=== PATIENT | male | born 2005 | race African-American/Black ===

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

== ENCOUNTER 2024-09-01 16:59 | Emergency (ER) | payer BC, SELFPAY ==
--- NOTE | ~2024-09-01 | XR_ITS ---
EXAMINATION: XR chest 1V portable DATE: 09/01/2024 17:54 INDICATION: Chest pain. TECHNIQUE: A single frontal view of the chest was obtained. COMPARISON: Chest 2 views 10/27/10 FINDINGS: There is no pneumonia, pleural effusion, or pneumothorax. The heart size is normal. IMPRESSION: 1. No acute cardiopulmonary disease. Reviewed, dictated and finalized at location A. [facility]
--- OUTSIDE RECORDS SUMMARY | 2024-09-01 17:01 | XMS_ITS | Clinical Summary ---
Author Organization [facility] [employer] Address [address] [place] [address] Care Team Providers Care Buyer Broker Name Role Phone Cornell Eddy MD Primary Care Provider [phone] Tk Ni PA-C Unavailable [phone] Source Comments [facility] [employer],non-owned Affiliates and Associated Physician Practices is amultiple site organization consisting of ambulatory clinics and hospital sitesin [place], [place], [place] and [place]. This disclosure is being madepursuant to the Care Everywhere program and may not contain all information available regarding this patient. Last updated 18.[facility] [employer] Allergies No known active allergies Medications Be aware that medications may not be up to date on this document. Always verify current medications with the patient. 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 No clear source of his pain. Recommended OTC medications if pain becomes persistent and scrotal support. Can follow up in clinic PRN if symptoms worsen or persist. Closed nondisplaced fracture of phalanx of left thumb 03/10/2018 Social History Tobacco Use Types Packs/Day Years Used Date Smoking Tobacco: Never Smokeless Tobacco: Never Alcohol Use Standard Drinks/Week Comments Never 0 (1 standard drink = 0.6 oz pur e alcohol) Sex and Gender Information Value Date Recorded Sex Assigned at Not on file Gender Identity Not on file Sexual Orientation Not on file Last Filed Vital Signs Vital Sign Reading Time Taken Comments Blood Pressure 95/58 02/28/2017 11:54 AM CDT Pulse 74 02/28/2017 11:54 AM CDT Temperature 36.9 C (98.4 F) 02/28/2017 11:54 AM CDT Respiratory Rate 16 02/28/2017 11:54 AM CDT Oxygen Saturation 99% 02/28/2017 11:54 AM CDT Inhaled Oxygen Concentration - - Weight 64.4 kg (142 lb) 01/19/2021 11:10 AM CDT Height 169 cm (5' 6.54 ) 11/06/2020 9:19 AM CDT Body Mass Index - - Plan of Treatment Health Maintenance Due Date Last Done Comments HIV SCREENING 11/06/2019 HPV VACCINE (1 - Male 3-dose series) 11/06/2019 MENINGOCOCCAL (Group B) VACC INE (1 of 2 - Standard) 2020 HEPATITIS C SCREENING 11/01/2022 DTAP/TDAP/TD VACCINES (1 - Tdap) 11/06/2023 HEPATITIS B VACCINE (1 of 3 - 19+ 3-dose series) 11/06/2023 COVID-19 VACCINE (1 - 2023-2 5 season) 2024 INFLUENZA VACCINE (#1) 2024 DEPRESSION SCREENING 07/14/2024 ZOSTER VACCINE (1 of 2) 2054 HIB VACCINE Aged Out No longer eligi ble based on patient's age to complete this topic MENINGOCOCCAL VACCINE Aged Out No delfino erick eligible based on patient's age to complete this topic PNEUMOCOCCAL VACCINE Aged Out No long er eligible based on patient's age to complete this topic Goals Goal Patient Goal Type Associated Problems Recent Progress Patient-Stated? Author Mobility General No Merle Hannah, RN Note: Expected end date: 07/13/2021 The goal is to maintain or improve your mobility at the optimum level for you. Interventions: Care Teams Buyer Broker Relationship Specialty Start Date End Date Cornell Eddy MD [address] [place] [address] PCP - General Pediatrics 02/28/17 Tk Ni, PASandovalC [address] [place] [address] Orthopedic 10/31/20
--- OUTSIDE RECORDS SUMMARY | 2024-09-01 17:01 | XMS_ITS | Referral Summary ---
Author Organization [facility] [employer] Address [address] [place] [address] Care Team Providers Care Watershed Program Manager Name Role Phone Cornell Eddy MD Primary Care Provider [phone] Tk Ni PA-C Unavailable [phone] Source Comments [facility],non-owned Affiliates and Associated Physician Practices is amultiple site organization consisting of ambulatory clinics and hospital sitesin [place], [place], [place] and [place]. This disclosure is being madepursuant to the Care Everywhere program and may not contain all information available regarding this patient. Last updated 18.[facility] [employer] Allergies No known active allergies Medications Be aware that medications may not be up to date on this document. Always verify current medications with the patient. 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 Author Mobility General No Merle Hannah, RN Note: Expected end date: 07/13/2021 The goal is to maintain or improve your mobility at the optimum level for you. Interventions: Care Teams Watershed Program Manager Relationship Specialty Start Date End Date Cornell Eddy MD [address] [address] PCP - General Pediatrics 02/28/17 Tk Ni, MERYLC [address] [place] [address] Orthopedic 10/31/20
--- OUTSIDE RECORDS SUMMARY | 2024-09-01 17:01 | XMS_ITS | Patient Health Summary ---
Author Organization [facility] Address [address] [place] [address] Care Team Providers Care Prime Minister Name Role Phone Cornell Eddy MD Primary Care Provider [phone] Tk Ni PA-C Unavailable [phone] Note from [facility] [place],non-owned Affiliates and Associated Physician Practices is amultiple site organization consisting of ambulatory clinics and hospital sitesin [place], [place], [place] and [place]. This disclosure is being madepursuant to the Care Everywhere program and may not contain all information available regarding this patient. Last updated 18.[facility] Allergies No known active allergies Medications Be aware that medications may not be up to date on this document. Always verify current medications with the patient. 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 Anatomical Region Laterality Modality Wrist / Hand Radiographic Loreta ging 01/19/2021 11:1 0 AM CDT Impressions 01/19/2021 11:27 AM CDT Impression: Flexion deformity of the fifth digit proximal interphalangeal joint with a 3 mm nonacute appearing fracture fragment adjacent to the proximal phalanx head. Mild surrounding soft tissue swelling. Report dictated by Deny Ayon MD (sales and marketing vice president). I, Dr. ABHINAV MURO MD have personally reviewed and interpreted this examination/study. This report was electronically signed by ABHINAV MURO MD on 01/19/2021 11:27 AM . Narrative 01/19/2021 11:27 AM CDT EXAMINATION: XR HAND LEFT 3VW HISTORY: M79.642: Pain of left hand COMPARISON: No prior study is available for comparison. FINDINGS: There is mild deformity of the fifth digit proximal phalanx head with an adjacent 3 mm ossific fragment which is likely a nonacute fracture. There is flexion of the fifth digit proximal interphalangeal joint on all the images. There is mild surrounding soft tissue swelling. These findings are consistent with the sequela of trauma. There is no other fracture or dislocation and the other joints are normal. Procedure Note Abhinav Muro MD - 01/19/2021 EXAMINATION: XR HAND LEFT 3VW HISTORY: M79.642: Pain of left hand COMPARISON: No prior study is available for comparison. FINDINGS: There is mild deformity of the fifth digit proximal phalanx head with an adjacent 3 mm ossific fragment which is likely a nonacute fracture.There is flexion of the fifth digit proximal interphalangeal joint on all the images. There is mild surrounding soft tissue swelling. These findingsare consistent with the sequela of trauma. There is no other fracture or dislocation and the other joints arenormal. Impression: Flexion deformity of the fifth digit proximal interphalangeal joint witha 3 mm nonacute appearing fracture fragment adjacent to the proximalphalanx head. Mild surrounding soft tissue swelling. Report dictated by Deny Ayon MD (sales and marketing vice president). I, Dr. ABHINAV MURO MD have personally reviewed and interpreted this examination/study. This report was electronically signed by ABHINAV MURO MD on01/19/2021 11:27 AM . Logan Strong MD DIAGNOSTIC IMAGING O RDERABLES * US SCROTUM AND CONTENTS (08/16/2020 2:58 PM SAUSAGE COOKER) Anatomical Region Laterality Modality Pelvis Ultrasound 08/16/2020 2:21 PM SAUSAGE COOKER Impressions 08/16/2020 3:08 PM SAUSAGE COOKER Unremarkable testicular ultrasound. Reading Radiologist: Inocente Garcia on 08/16/2020 at 3:08 PM Narrative 08/16/2020 3:08 PM SAUSAGE COOKER INDICATION: Scrotal pain COMPARISON: None available. TECHNIQUE: Gao scale and Color Doppler imaging of the scrotum was performed. FINDINGS: The right testicle measures 3.2 x 1.8 x 2.7 cm (volume of 8.5 cc) and the left testicle measures 3.1 x 2.0 x 2.2 cm (volume of 6.9 cm). No discrete focal intratesticular abnormalities are identified. The epididymis is unremarkable bilaterally. No substantial hydroceles are identified. Doppler evaluation demonstrates grossly positive and symmetric bilateral testicular blood flow. Procedure Note Inocente Garcia DO - 08/16/2020 INDICATION: Scrotal pain COMPARISON: None available. TECHNIQUE: Gao scale and Color Doppler imaging of the scrotum wasperformed. FINDINGS: The right testicle measures 3.2 x 1.8 x 2.7 cm (volume of 8.5 cc) and theleft testicle measures 3.1 x 2.0 x 2.2 cm (volume of 6.9 cm). No discrete focal intratesticular abnormalities are identified. The epididymis is unremarkable bilaterally. No substantial hydroceles are identified. Doppler evaluation demonstrates grossly positive and symmetric bilateral testicular blood flow. IMPRESSION Unremarkable testicular ultrasound. Reading Radiologist: Inocente Garcia on 08/16/2020 at 3:08 PM Elsa Fung PA-C ORDERABLES Care Teams Prime Minister Relationship Specialty Start Date End Date Cornell Eddy MD [address] [place] [phone] PCP - General Pediatrics 02/28/17 Tk Ni PA-C [address] [place] [phone] Orthopedic 10/31/20
[2024-09-01 17:05] VITALS: BP 123/59; PULSE 83; RESP 16; TEMP 36.6; O2SAT 100
[2024-09-01 17:31] LABS: Basophils Percent Auto 0.2 % (0.2-1.2); Eosinophils Absolute Auto 0.1 K/mm3 (0-0.3); Eosinophils Percent Auto 0.6 % (0-4.4); Hematocrit 41.4 % (42.0-52.0); Immature Granulocyte Absolute 0.02 K/mm3 (0.00-0.031); Immature Granulocyte Percent A 0.2 % (0-0.5); Lymphocytes Absolute Auto 2.55 K/mm3 (0.9-3.2); Lymphocytes Percent Auto 28.2 % (18.3-44.2); Mean Corpuscular HGB Conc 33.8 g/dl (32-36); Mean Corpuscular Hemoglobin 31.3 pg (26-34); Mean Corpuscular Volume 92.6 fl (80-100); Mean Platelet Volume 8.7 fl (7.4-10.4); Monocytes Absolute Auto 0.6 K/mm3 (0.1-0.6); Monocytes Percent Auto 6.1 % (2.6-8.5); Neutrophils Absolute Auto 5.9 K/mm3 (1.3-6.7); Neutrophils Percent Auto 64.7 % (45.5-73.1); Platelet Count Result 306 k/mm3 (150-375); Red Blood Count 4.47 M/mm3 (4.6-6.20); Red Cell Distribution Width 12.5 % (11.5-14.5); White Blood Count 9.1 K/mm3 (4.5-10.0)
--- NOTE | 2024-09-01 17:39 | ECG_ITS ---
Test Date: 2024-09-01 18:04:34 Measurements Intervals Foster Rate: 59 P: 44 UT: 176 QRS: 60 QRSD: 81 T: 63 QT: 352 QTc: 350 Interpretive Statements SINUS BRADYCARDIA WITH SINUS ARRHYTHMIA BORDERLINE ECG No previous ECG available for comparison Electronically Signed On 09-01-2024 18:56:33 SHEET METAL WORKER by Danis Carlos D.O.
--- NOTE | 2024-09-01 17:46 | ED.ABDPAIN ---
HPI - Abdominal Pain General Chief Complaint: Abdominal Pain Stated Complaint: I think my spleen is swollen Time Seen by Provider: 09/01/24 17:15 Source: patient Mode of arrival: ambulatory Limitations: no limitations History of Present Illness HPI narrative: This is a 18-year-old male who presents to the ED for chief complaint of abdominal pain for the past 2 days. States it started after waking up yesterday morning. Patient states that the pain is concentrated in the left upper quadrant. States pain does not radiate and has been relatively constant. Denies any alleviating or exacerbating factors. States that he did have preceding illness about a week or so ago. States that he was having fevers and sore throat which has since resolved. States that he has had a bit of a cough as well. Denies shortness of breath, vomiting, diarrhea, flank pain, urinary symptoms. Related Data Allergies Allergy/AdvReac Type Severity Reaction Status Date / Time No Known Allergies Allergy Verified 09/01/24 17:58 Review of Systems Review of Systems: All systems as dictated in HPI PMFSH Past Medical History Medical History No pertinent past medical history Surgical History Surgical History No pertinent past surgical history Family History Family History Mother Family history non-contributory Social History Social History Smoking status: Never smoker Alcohol intake: never Substance use: never Living arrangements: with family Gender identity (if verbalized by the patient): Male Exam Narrative: GENERAL: Well-appearing, well-nourished, and in no acute distress. Eating spicy chips in the bed. HEAD: Normocephalic, atraumatic. EYES: PERRLA and EOMI. ENT: Nares clear, no rhinorrhea or epistaxis. Mucous membranes moist. Oropharynx without tonsillar hypertrophy exudate or other lesions. NECK: Supple. No adenopathy or masses. CHEST: No respiratory distress. Clear to auscultation. No wheezes rales or rhonchi HEART: Regular rate and rhythm. No murmur heard. Normal peripheral pulses. ABDOMEN: Soft, nontender, nondistended, normal active bowel sounds. No organomegaly. Negative flank tenderness bilaterally MSK: Normal range of motion. No edema. SKIN: Warm, dry, no rash. NEURO: Alert and oriented x4. No focal deficits. PSYCH: Normal mood and affect. Course Vital Signs Vital signs: Vital Signs Temperature 97.9 F 09/01/24 17:05 Pulse Rate 83 09/01/24 17:05 Respiratory Rate 16 09/01/24 17:05 Blood Pressure 123/59 L 09/01/24 17:05 Pulse Oximetry 100 09/01/24 17:05 Temperature 97.9 F 09/01/24 17:05 Pulse Rate 83 09/01/24 17:05 Respiratory Rate 16 09/01/24 17:05 Blood Pressure 123/59 L 09/01/24 17:05 Pulse Oximetry 100 09/01/24 17:05 MDM - Abdominal Pain MDM Narrative Medical decision making narrative: This is a 18-year-old male who presents to the ED for chief complaint of abdominal pain. Vitals are normal. Exam is unremarkable overall. Low concern for acute abdomen. Lab work is benign with a normal white count and normal CBC overall. CMP grossly unremarkable. Lipase normal. Chest x-ray normal. EKG shows benign early repolarization. Patient was given GI cocktail, Bentyl, Pepcid for assumed gastritis with some relief. Urinalysis concerning with 2+ leuk esterase, 21-50 whites. STD panel is positive for chlamydia. Patient will be given doxycycline here and Rx for doxy for 1 week. Patient will be discharged in stable condition. Supportive measures discussed and return precautions given. Patient is understanding and agreeable with plan for discharge with PCP follow-up. Differential Diagnosis Differential diagnosis: Likely abdominal pain, acute appendicitis, constipation, diverticulitis, gastroenteritis, pancreatitis and small bowel obstruction Lab Data 09/01/24 17:26 09/01/24 17:26 Labs: Lab Results 09/01/24 09/01/24 Range/Units 17:26 17:37 WBC 9.1 (4.5-10.0) K/mm3 RBC 4.47 L (4.6-6.20) M/mm3 Hgb 14.0 (14.0-18.0) g/dL Hct 41.4 L (42.0-52.0) % MCV 92.6 (80-100) fl MCH 31.3 (26-34) pg MCHC 33.8 (32-36) g/dl RDW 12.5 (11.5-14.5) % Plt Count 306 (150-375) k/mm3 MPV 8.7 (7.4-10.4) fl Immature Gran % (Auto) 0.2 (0-0.5) % Neut % (Auto) 64.7 (45.5-73.1) % Lymph % (Auto) 28.2 (18.3-44.2) % [place] % (Auto) 6.1 (2.6-8.5) % Eos % (Auto) 0.6 (0-4.4) % Baso % (Auto) 0.2 (0.2-1.2) % Lymph # (Auto) 2.55 (0.9-3.2) K/mm3 [place] # (Auto) 0.6 (0.1-0.6) K/mm3 Eos # (Auto) 0.1 (0-0.3) K/mm3 Baso # (Auto) 0.0 (0.0-0.1) K/mm3 Abs Immat Gran (auto) 0.02 (0.00-0.031) K/mm3 Absolute Neuts (auto) 5.9 (1.3-6.7) K/mm3 Absolute Nucleated RBC 0.000 (0.0-0.012) K/mm3 Nucleated RBC % 0.0 (0.0-0.2) % Sodium 140 (134-143) mmol/L Potassium 4.2 (3.4-5.0) mmol/L Chloride 100 (98-107) mmol/L Carbon Dioxide 28 (22-30) mmol/L Anion Gap 12 (4-12) mmol/L BUN 13 (8-21) mg/dL Creatinine 0.98 (0.7-1.3) mg/dL Estim Creat Clear Calc 93 ml/min Estimated GFR > 60 (59 - ) Glucose 83 (65-110) mg/dL Calcium 9.8 (8.9-10.7) mg/dL Total Bilirubin 1.1 (0.2-1.3) mg/dL AST 45 (17-59) U/L ALT 34 (6-50) U/L Alkaline Phosphatase 77 (58-237) U/L Total Protein 8.0 (6.3-8.6) g/dL Albumin 4.7 (3.7-5.6) g/dL Lipase 18 L (23-300) U/L Urine Color Yellow (Yellow) Urine Appearance Clear (Clear) Urine pH 6.5 (5.0-9.0) Ur Specific [place] 1.017 (1.001-1.035) Urine Protein Negative (Negative) mg/dL Urine Glucose (UA) Negative (Negative) mg/dL Urine Ketones Negative (Negative) mg/dL Ur Blood (Man) Negative (Negative) Urine Nitrate Negative (Negative) Urine Bilirubin Negative (Negative) Urine Urobilinogen 1.0 (<2.0) mg/dL Leukocyte Esterase Rfl 2+ H (Negative) RAYRAY/UL Urine RBC 0-2 (0-2) /hpf Urine WBC 21-50 H (0-3) /hpf Ur Squamous Epith Cells None seen (Few) /hpf Urine Bacteria None seen /hpf Urine Casts 0-2 C. trachomatis (PCR) Detected A (NOT DETECTE) Monoscreen Negative (Negative) N. gonorrhoeae (PCR) Not detected (NOT DETECTE) T. vaginalis (PCR) Not detected (NOT DETECTE) Imaging Data Radiologist's impression: ITS Impressions Chest X-Ray 09/01/24 17:57 IMPRESSION: 1. No acute cardiopulmonary disease. ECG Data EKG #1: ECG completion date: 09/01/24 ECG completion time: 18:04 Prior ECG tracings: not available for review Interpretation: Sinus bradycardia Rate 59 Normal QRS Normal QTC Benign early repolarization No acute ischemic findings Discharge Plan Discharge Clinical Impression: Chlamydia Patient Disposition: Home, Self-Care Condition: Stable Instructions: Antibiotic Form, Chlamydia (ED) Additional Instructions: Your exam and workup today were revealing of the positive chlamydia test. Please follow-up closely with PCP. Take antibiotics as prescribed through the full course. Tylenol 500 mg and ibuprofen 600 mg every 6 hours as needed for pain If you have any new or worsening symptoms please return to the ER for further evaluation. Patient Language: [place] Prescriptions: No Action amoxicillin 500 mg tablet 1,000 mg PO DAILY 10 Days Qty: 20 0RF Follow-up/Referrals: Cornell Eddy MD [Primary Care Provider] - Time of Disposition: 20:24
--- OUTSIDE RECORDS SUMMARY | 2024-09-01 17:46 | XMS_ITS | Clinical Summary ---
Author Organization [facility] [employer] Address [address] [place] [address] Care Team Providers Care Applications Analyst Name Role Phone Cornell Eddy MD Primary Care Provider [phone] Tk Ni PA-C Unavailable [phone] Source Comments [facility] [employer],non-owned Affiliates and Associated Physician Practices is amultiple site organization consisting of ambulatory clinics and hospital sitesin [place], [place], [place] and [place]. This disclosure is being madepursuant to the Care Everywhere program and may not contain all information available regarding this patient. Last updated 18.[facility] [employer] Allergies No known active allergies Medications Be aware that medications may not be up to date on this document. Always verify current medications with the patient. 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 Interventions: Care Teams Applications Analyst Relationship Specialty Start Date End Date Cornell Eddy MD [address] [place] [address] PCP - General Pediatrics 02/28/17 Tk Ni, PASandovalC [address] [place] [address] Orthopedic 10/31/20
--- OUTSIDE RECORDS SUMMARY | 2024-09-01 17:46 | XMS_ITS | Patient Health Summary ---
Author Organization [facility] Address [address] [place] [address] Care Team Providers Care Night Coordinator Name Role Phone Cornell Eddy MD Primary Care Provider [phone] Tk Ni PA-C Unavailable [phone] Note from [facility],non-owned Affiliates and Associated Physician Practices is amultiple site organization consisting of ambulatory clinics and hospital sitesin [place], [place], [place] and [place]. This disclosure is being madepursuant to the Care Everywhere program and may not contain all information available regarding this patient. Last updated 18.[facility] Allergies No known active allergies Medications [...] swelling. Report dictated by Deny Ayon MD (radiology physician assistant). I, Dr. ABHINAV MURO MD have personally [...] swelling. Report dictated by Deny Ayon MD (radiology physician assistant). I, Dr. ABHINAV MURO MD have personally reviewed and interpreted this examination/study. This report was electronically signed by ABHINAV MURO MD on01/19/2021 11:27 AM . Logan Strong MD DIAGNOSTIC IMAGING O RDERABLES * US SCROTUM AND CONTENTS (08/16/2020 2:58 PM PROGRAMMER) Anatomical Region Laterality Modality Pelvis Ultrasound 08/16/2020 2:21 PM PROGRAMMER Impressions 08/16/2020 3:08 PM PROGRAMMER Unremarkable testicular ultrasound. Reading Radiologist: Inocetne Garcia on 08/16/2020 at 3:08 PM Narrative 08/16/2020 3:08 PM PROGRAMMER INDICATION: Scrotal pain COMPARISON: None available. TECHNIQUE: [...] PM Elsa Fung PA-C ORDERABLES Care Teams Night Coordinator Relationship Specialty Start Date End Date Cornell Eddy MD [address] [place] [phone] PCP - General Pediatrics 02/28/17 Tk Ni PA-C [address] [place] [phone] Orthopedic 10/31/20
--- OUTSIDE RECORDS SUMMARY | 2024-09-01 17:46 | XMS_ITS | Referral Summary ---
Author Organization [facility] [employer] Address [address] [place] [address] Care Team Providers Care Psych Coordinator Name Role Phone Cornell Eddy MD Primary Care Provider [phone] Tk Ni PA-C Unavailable [phone] Source Comments [facility],non-owned Affiliates and Associated Physician Practices is amultiple site organization consisting of ambulatory clinics and hospital sitesin [place], [place], [place] and [place]. This disclosure is being madepursuant to the Care Everywhere program and may not contain all information available regarding this patient. Last updated 18.[facility] [employer] Allergies No known active allergies Medications Be aware that medications may not be up to date on this document. Always verify current medications with the patient. 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 Interventions: Care Teams Psych Coordinator Relationship Specialty Start Date End Date Cornell Eddy MD [address] [phone] PCP - General Pediatrics 02/28/17 Tk Ni, [facility] [address] [place] [address] Orthopedic 10/31/20
[2024-09-01 17:48] LABS: Alanine Aminotransferase 34 U/L (6-50); Albumin Level 4.7 g/dL (3.7-5.6); Alkaline Phosphatase 77 U/L (58-237); Anion Gap 12 mmol/L (4-12); Aspartate Amino Transferase 45 U/L (17-59); Bilirubin,Total 1.1 mg/dL (0.2-1.3); Blood Urea Nitrogen 13 mg/dL (8-21); Calcium 9.8 mg/dL (8.9-10.7); Carbon Dioxide 28 mmol/L (22-30); Chloride 100 mmol/L (98-107); Estimated CRCL calculation 93 ml/min; Estimated Glomerular Filt Rate > 60; Glucose 83 mg/dL (65-110); Lipase 18 U/L (23-300); Potassium 4.2 mmol/L (3.4-5.0); Sodium 140 mmol/L (134-143)
[2024-09-01] MEDS: ONDANSETRON HCL ODT 4 MG TABLET PO (17:59)
[2024-09-01] MEDS: DICYCLOMINE HCL 10 MG CAPSULE 20 MG PO (17:59)
[2024-09-01] MEDS: BELLADONNA ALK/PHENOB ELIX 10 ML, MAG HYDROX/ALUMINUM HYD/SIMETH 30 ML, LIDOCAINE 2% VI... PO (17:59)
[2024-09-01] MEDS: FAMOTIDINE 20 MG TABLET PO (17:59)
[2024-09-01 18:04] LABS: Add Urine Microscopic? YES; Appearance Urine Clear (Clear); Bacteria Urine None Seen /hpf; Bilirubin Urine Negative (Negative); Blood Urine Negative (Negative); Color Urine Yellow (Yellow); Glucose Urine UA Negative (Negative); Ketones Urine Negative (Negative); Leukocyte Esterase Ur 2+ LEU/UL (Negative); Nitrate Urine Negative (Negative); Non Pathogenic Casts 0-2; Protein Urine Negative (Negative); RBC Urine 0-2 /hpf (0-2); Specific Grav Ur 1.017 (1.001-1.035); Squamous Epithelial Cell Urine None Seen /hpf (Few); WBC Urine 21-50 /hpf (0-3); pH Urine 6.5 (5.0-9.0)
[2024-09-01 18:32] LABS: Monoscreen Negative (Negative); Negative Monotest Control Negative (Negative); Positive Monotest Control Positive (Positive)
[2024-09-01 19:50] LABS: Trichomonas Vag PCR NOT DETECTED (NOT DETECTE)
[2024-09-01 20:15] LABS: Chlamydia trachomatis DETECTED (NOT DETECTE); Neisseria gonorrhoeae PCR NOT DETECTED (NOT DETECTE)
[2024-09-01 20:25] VITALS: PULSE 67; RESP 18; TEMP 36.7; O2SAT 100
[2024-09-01] MEDS: DOXYCYCLINE HYCLATE 100 MG TABLET PO (20:26)
[2024-09-01 20:27] VITALS: BP 111/57
== END 2024-09-01 20:39 | disposition home or self-care (01) ==
PROVIDERS: Emergency Provider Physician Assistant; PCP Pediatrics
DX: A74.9 Chlamydial infection, unspecified (principal); R00.1 Bradycardia, unspecified
CPT/HCPCS: 36415; 71045; 80053; 81001; 83690; 85025; 86308; 87086; 87491; 87591; 87661; 93005; 99283; A9270